=== PATIENT | male | born 1980 | race Caucasian/White ===

== ENCOUNTER 2020-06-26 21:41 | Emergency (ER) | payer BC, SELFPAY ==
--- NOTE | ~2020-06-26 | XR_ITS ---
EXAMINATION: RIGHT FOOT AND ANKLE 6 VIEWS CLINICAL INFORMATION: Pain and swelling. COMPARISON: None. TECHNIQUE: AP, lateral, oblique views of the right foot were obtained in addition to AP, lateral and oblique views of the right ankle. FINDINGS: There is soft tissue swelling overlying the lateral malleolus. There is a trace ankle joint effusion. There is a nondisplaced fracture through the posterior calcaneus best demonstrated on the lateral view. No additional fractures are identified. XR/XR foot RT 2V IMPRESSION: Nondisplaced posterior calcaneal fracture. Mild soft tissue swelling.
--- NOTE | ~2020-06-26 | CT_ITS ---
EXAMINATION: CT FOOT WITHOUT CONTRAST, RIGHT CLINICAL INFORMATION: Calcaneal fracture. COMPARISON: 06/26/2020. TECHNIQUE: Contiguous helical images of the right foot were obtained without IV contrast. Multiplanar reconstructions were performed. This CT examination was performed using dose optimization techniques as appropriate, variously including the following: *Automated exposure control *Adjustment of mA and/or kV according to patient size (this includes techniques or standardized protocols for targeted exams where dose is matched to indication/reason for exam; i.e. extremities or head) *Use of iterative reconstruction technique DLP: 231 there is associated soft tissue swelling. mGy-cm FINDINGS: Several different fracture lines are present throughout the calcaneus. In addition to the posterior vertical fracture line identified on plain film, there are additional fracture lines extending anteriorly to the calcaneal medial cuneiform joint. CT/CT foot RT wo con IMPRESSION: Calcaneal fracture with multiple fracture lines. No significant displacement.
--- NOTE | ~2020-06-26 | XR_ITS ---
EXAMINATION: RIGHT FOOT AND ANKLE 6 VIEWS CLINICAL INFORMATION: Pain and swelling. COMPARISON: None. TECHNIQUE: AP, lateral, oblique views of the right foot were obtained in addition to AP, lateral and oblique views of the right ankle. FINDINGS: There is soft tissue swelling overlying the lateral malleolus. There is a trace ankle joint effusion. There is a nondisplaced fracture through the posterior calcaneus best demonstrated on the lateral view. No additional fractures are identified. XR/XR ankle RT 2V IMPRESSION: Nondisplaced posterior calcaneal fracture. Mild soft tissue swelling.
[2020-06-26 22:01] VITALS: BP 168/99; PULSE 114; RESP 18; TEMP 37.8; O2SAT 100; BMI 29.0
--- NOTE | 2020-06-26 23:33 | ED_ITS ---
HPI - Extremity Injury (Lower) General Chief Complaint: Extremity Injury, Lower Stated Complaint: Fall Time Seen by Provider: 06/26/20 23:31 Source: patient Mode of arrival: other (Crutches) Limitations: no limitations History of Present Illness HPI Narrative: 39-year-old male with no significant past medical history presents with right foot pain. Stated that he jumped over a fence, landed on his heel and felt 10/10 pain. He is unable to bear weight. He is utilizing his son's crutches to help him ambulate at this time. Does not describe any knee or hip pain. Did not report hitting his head or losing consciousness. Denies chest pain or pressure, palpitations, shortness breath, abdominal pain, abdominal distention, dysuria, hematuria, any other concerning symptoms. MD complaint: foot injury Onset (ago): hour(s) (Within the hour of arrival) Place: street/outdoors Severity: severe Severity scale (1-10): 8 Relieving factors: immobilization and rest Exacerbating factors: weight bearing, movement and palpation Context: fall and direct blow Associated symptoms: snap/pop sensation and unable to bear weight Other symptoms: none Related Data Allergies Allergy/AdvReac Type Severity Reaction Status Date / Time amoxicillin [From Augmentin] Allergy Unknown Verified 06/26/20 22:05 clavulanic acid Allergy Unknown Verified 06/26/20 22:05 [From Augmentin] Review of Systems Review of Systems: Constitutional: No Fever, No Chills ENT/Mouth: No Ear Pain, No Hoarseness, No sore throat Eyes: No Eye Pain, No Swelling, No Redness, No Foreign Body Cardiovascular: No Chest Pain, No SOB Respiratory: No Cough, No Dyspnea Gastrointestinal: No Nausea, No Vomiting, No Diarrhea, No abdominal Pain Genitourinary: No Dysuria, No Hematuria Musculoskeletal: positive right foot pain, No Myalgias, No Joint Swelling Skin: No Skin lacerations, No rash Neuro: No Weakness, No Numbness, No Paresthesias, No Loss of Consciousness, No Dizziness, No Headache Psych: No Anxiety/Panic, No Depression Heme/Lymph: no easy bruising, no Lymphadenopathy Endocrine: No Polyuria, No Polydipsia Yes all other systems are reviewed and are negative [facility] Past Medical History Attestation statement: The following information was validated with the patient. Source: old records reviewed Medical History No active medical problems Social History Social History Smoking Status: Current every day smoker Use of substances other than those prescribed or required for medical reasons: No Advance Directives: No Advance Directives Information Provided: No Physical Exam Vital Signs: Vital Signs: Last Vital Signs Temp 98.3 F 06/27/20 01:40 Pulse 87 06/27/20 01:40 Resp 16 06/27/20 01:40 BP 162/108 H 06/27/20 01:40 Pulse Ox 97 06/27/20 01:40 Body Mass Index 29.0 Appearance: Alert. Oriented X3. No acute distress. Eyes: Pupils equal, round and reactive to light. ENT: Pharynx normal. Neck: Normal inspection. Neck supple. CVS: Normal heart rate and rhythm. Pulses normal. Respiratory: No respiratory distress. Breath sounds normal. Abdomen: Soft and nontender. Skin: Skin warm and dry. Normal skin color. Normal skin turgor. Extremities: Decreased flexion and extension to right lower extremity, significant tenderness to palpation to medial and lateral malleolar process, significant tenderness to right heel. Full range of motion to knee hip, no other apparent injuries. Neuro: No motor deficit. No sensory deficit. Course Course Course Narrative: 39-year-old male presents with right foot injury after jumping over a fence. Highly suspicious physical exam for calcaneal or malleolar fracture. Will order x-rays of ankle and foot. Positive calcaneal fracture on x-ray, discussion with orthopedic PA marketing communications manager via [place] text, requests CT scan of the foot. Will follow-up in the office on Monday. Patient was offered oxycodone as pain management, he politely declined, prefers to use Motrin and Tylenol. Will give crutch instructions, and walking boot. Detailed description of nonweightbearing, patient and patient's family member verbalized understanding of and agrees to plan of care discharge home. MDM - Extremity Injury (Lower) Differential Diagnosis Differential diagnosis: Likely ankle sprain and strain and ankle fracture Medical Records Attestation: I reviewed the patient's medical records. Lab Data Attestation: I reviewed the patient's lab results. Imaging Data Foot x-ray: Attestation: I personally reviewed and interpreted this imaging study as follows: Radiologist's impression: EXAMINATION: RIGHT FOOT AND ANKLE 6 VIEWS CLINICAL INFORMATION: Pain and swelling. COMPARISON: None. TECHNIQUE: AP, lateral, oblique views of the right foot were obtained in addition to AP, lateral and oblique views of the right ankle. FINDINGS: There is soft tissue swelling overlying the lateral malleolus. There is a trace ankle joint effusion. There is a nondisplaced fracture through the posterior calcaneus best demonstrated on the lateral view. No additional fractures are identified. XR/XR foot RT 2V IMPRESSION: Nondisplaced posterior calcaneal fracture. Mild soft tissue swelling. CT scan of foot: Attestation: I personally reviewed and interpreted this imaging study as follows: Radiologist's impression: EXAMINATION: CT FOOT WITHOUT CONTRAST, RIGHT CLINICAL INFORMATION: Calcaneal fracture. COMPARISON: 06/26/2020. TECHNIQUE: Contiguous helical images of the right foot were obtained without IV contrast. Multiplanar reconstructions were performed. This CT examination was performed using dose optimization techniques as appropriate, variously including the following: *Automated exposure control *Adjustment of mA and/or kV according to patient size (this includes techniques or standardized protocols for targeted exams where dose is matched to indication/reason for exam; i.e. extremities or head) *Use of iterative reconstruction technique DLP: 231 there is associated soft tissue swelling. mGy-cm FINDINGS: Several different fracture lines are present throughout the calcaneus. In addition to the posterior vertical fracture line identified on plain film, there are additional fracture lines extending anteriorly to the calcaneal medial cuneiform joint. CT/CT foot RT wo con IMPRESSION: Calcaneal fracture with multiple fracture lines. No significant displacement. Discharge Plan Discharge Clinical Impression: Calcaneal fracture Qualifiers: Encounter type: initial encounter Fracture type: closed Fracture alignment: nondisplaced Laterality: right Patient Disposition: Home, Self-Care Instructions: Calcaneal Fracture (ED), R.I.C.E. Treatment (ED), Non Weight Bearing Activity (ED) Additional Instructions: You were evaluated for right foot pain. X-rays and CT scan indicates right calcaneal fracture. Please wear your boot at all times. Maintain significant elevation to help reduce swelling. You must not bear any weight on this foot. That means do not stepped down on your right foot for any reason at all. Use crutches at all times when ambulating. Please alternate Tylenol 650 mg every 6 hours and Motrin 650 mg every 6 hours as needed for pain management. Write down what time you take these medications please note overdose. Please follow-up with orthopedics. Cristian LIRA is expecting your call on Monday. Thank you for choosing this emergency department for evaluation. Please follow-up with primary care physician as needed. Return to the emergency department for any new, concerning, or worsening symptoms. Referrals: Cristian Hernández PA-C [Physician [employer]] - 2 days (Right calcaneal fracture) Interventions: ED Discharge Assessment Last Done: 06/27/20 02:16 Discharge Date/Time: 06/27/20 02:18
[2020-06-27] MEDS: Ibuprofen 600 MG TABLET PO
[2020-06-27 00:18] VITALS: BP 159/105; PULSE 92; RESP 15; O2SAT 98
[2020-06-27 01:40] VITALS: BP 162/108; PULSE 87; RESP 16; TEMP 36.8; O2SAT 97
== END 2020-06-27 02:18 | disposition home or self-care (01) ==
PROVIDERS: Emergency Provider Internal Medicine
DX: S92.001A Unspecified fracture of right calcaneus, initial encounter for closed fracture (principal); M25.571 Pain in right ankle and joints of right foot; Y33.XXXA Other specified events, undetermined intent, initial encounter; Y93.9 Activity, unspecified; Y92.9 Unspecified place or not applicable; Y99.9 Unspecified external cause status; F17.200 Nicotine dependence, unspecified, uncomplicated; Z71.6 Tobacco abuse counseling
CPT/HCPCS: 73600; 73620; 73700; 99285

== ENCOUNTER → 2020-07-03 09:36 | Outpatient (BNVA) | payer BC, SELFPAY | PROVIDERS: Visit Provider Physician Assistant | DX: S92.001A Unspecified fracture of right calcaneus, initial encounter for closed fracture (principal) | CPT/HCPCS: 28400 ==

== ENCOUNTER 2020-08-05 08:11 | Outpatient (REF) | payer BC, SELFPAY ==
--- NOTE | ~2020-08-05 | XR_ITS ---
EXAMINATION: XR FOOT, RIGHT CLINICAL INFORMATION: Fracture COMPARISON: Previous x-ray and CT of the right foot June 2020 TECHNIQUE: AP, lateral, and oblique views of the right foot. FINDINGS: The bones are osteopenic. Calcaneal fracture is not appreciated. The joint spaces are normal. Soft tissues are normal. XR/XR foot RT min 3V IMPRESSION: Osteopenia. Calcaneal fracture not appreciated.
== END 2020-08-05 08:12 | disposition home or self-care (01) ==
LOC: HO.HOSX 08:11
PROVIDERS: Visit Provider Physician Assistant
DX: S92.001A Unspecified fracture of right calcaneus, initial encounter for closed fracture (principal); S92.351A Displaced fracture of fifth metatarsal bone, right foot, initial encounter for closed fracture
CPT/HCPCS: 73630

== ENCOUNTER 2020-09-02 09:03 | Outpatient (REF) | payer BC, SELFPAY ==
--- NOTE | ~2020-09-02 | XR_ITS ---
EXAMINATION: XR FOOT, RIGHT CLINICAL INFORMATION: Displaced fracture fifth metatarsal bone COMPARISON: Right foot 08/05/2020. CT 06/27/2020 TECHNIQUE: AP, lateral, and oblique views of the right foot. FINDINGS: There is diffuse osteopenia. No visible acute fracture, dislocation or subluxation seen on this exam. CT visualized fracture lines are likely healed and not seen. The ankle mortise and subtalar joints are normal. The soft tissues are normal. XR/XR foot RT min 3V IMPRESSION: Diffuse osteopenia.. Recently seen calcaneal fracture appears healed. The fracture lines are not visualized.
== END 2020-09-02 09:04 | disposition home or self-care (01) ==
LOC: HO.XRAY 09:03
PROVIDERS: Visit Provider Physician Assistant
DX: S92.351D Displaced fracture of fifth metatarsal bone, right foot, subsequent encounter for fracture with routine healing (principal)
CPT/HCPCS: 73630

== ENCOUNTER 2020-10-14 06:12 | Outpatient (REF) | payer BC, SELFPAY ==
--- NOTE | ~2020-10-14 | XR_ITS ---
EXAMINATION: XR FOOT, RIGHT CLINICAL INFORMATION: Displaced fracture fifth metatarsal COMPARISON: September 02, 2020 and studies dating back to June 26, 2020 TECHNIQUE: AP, lateral, and oblique views of the right foot. FINDINGS: There is osteopenia visualized bones. No fracture of the fifth metatarsal is identified. Joint spaces are maintained. There appears be healing of calcaneal fractures with fracture lines no longer being evident and with regions of increased sclerosis. Small plantar calcaneal spur seen. XR/XR foot RT min 3V IMPRESSION: Appearance of bony union of previously noted right calcaneal fractures.
== END 2020-10-14 06:13 | disposition home or self-care (01) ==
LOC: HO.HOSX 06:12
PROVIDERS: Visit Provider Physician Assistant
DX: S92.351A Displaced fracture of fifth metatarsal bone, right foot, initial encounter for closed fracture (principal)
CPT/HCPCS: 73630

== ENCOUNTER 2024-08-21 08:09 | Outpatient (AMB) | payer OTHER, SELFPAY ==
--- NOTE | 2024-08-21 08:12 | A.OFFPC_ITS ---
Vital Signs 08/21/24 08:13 08/21/24 08:41 Height 6 ft 1 in Weight 208 lb BMI 27.4 BP 147/81 H 160/120 H Blood Pressure Location Lt brachial Lt brachial Position Sitting Sitting Respiration 20 Pulse 112 H 83 Pulse Source Pulse Oximeter Pulse Oximeter Temp 97.7 F Temp Source Temporal Artery Scan Pulse Oximetry (%) 97 Oxygen Delivery Method Room Air Intake Visit Reasons: establish care Final Application Reviewer: Present Accompanied by: Self / Same As Patient Allergies amoxicillin [From Augmentin] Allergy (Verified 08/21/24 08:28) Unknown clavulanic acid [From Augmentin] Allergy (Verified 08/21/24 08:28) Unknown Medication List - Last Reconciled 08/21/24 by Yessi Sol PA-C omeprazole 40 mg PO DAILY Dental Screening Dental Screen Date: 07/11/24 Did you have a dental visit in the last 12 months?: Yes Did you have a dental problem in the last 6 months where you did not have access to dental care?: No HPI establish care HPI Details 43-year-old male coming to the office wi th the 1st time. Chronic management of gastroesophageal reflux disease (GERD) with omeprazole 20 mg every other day is effective, with symptoms reappearing when doses are missed. Limited dietary modifications have been discussed. Nicotine dependence is ongoing, with one pack per day despite prior cessation attempts including Bupropion, which was poorly tolerated. Cessation remains a future consideration without committed intervention steps at this time. Current essential hypertension is indicated by blood pressure values showing a concerning elevat ion, manifesting consistently since a biometrics screening earlier this year. Lifestyle factors, including active smoking, may contribute to vascular health risks, though immediate symptomatic manifestations like chest pain or dyspnea are denied. 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 1. Little interest or pleasure in doing things: not at all 2. Feeling down, depressed, or hopeless: not at all 3. Trouble falling or staying asleep, or sleeping too much: not at all 4. Feeling tired or having little energy: not at all 5. Poor appetite or overeating: not at all 6. Feeling bad about yourself - or that you are a failure or have let yourself or your family down: not at all 7. Trouble concentrating on things, such as reading the newspaper or watching television: not at all 8. Moving or speaking so slowly that other people could have noticed. Or the opposite - being so fidgety or restless that you have been moving around a lot more than usual: not at all 9. Thoughts that you would be better off or of hurting yourself in some way: not at all Total score: 0 Depression Screening Interpretation: Negative Depression Screening Done: Yes 67766 - PHQ-9 Billing: Yes Source: Developed by Drs. Yaw Dupree, Nasrin Anderson, Jagdeep Magdaleno and colleagues, with an educational nasra from [employer]. AUDIT C Alcohol Use Questionnaire (AUDIT-C) 1. How often do you have a drink containing alcohol?: 4 or more times a week 2. How many drinks containing alcohol do you have on a typical day when you are drinking?: 3 or 4 3. How often do you have six or more drinks on one occasion?: Less than monthly Total Score: 6 Score Reviewed/Action Taken: Yes SOURAV-7 AMB Questionnaire SOURAV-7 Feeling nervous, anxious, or on edge: 0 = Not at all Not being able to stop or control worryin = Not at all Worrying too much about different things: 0 = Not at all Trouble relaxin = Not at all Being so restless that it is hard to sit still: 0 = Not at all Becoming easily annoyed or irritable: 2 = More than half the days Feeling afraid as if something awful might happen: 0 = Not at all Total SOURAV-7 score (0-4 normal; 5-9 mild; 10-14 moderate; 15-21 severe): 2 Source: Developed by Drs. Yaw Dupree, Nasrin Anderson, Jagdeep Magdaleno and colleagues, with an educational nasra from [employer]. SOURAV-7 Assessment Billing SOURAV-7 Assessment Tool: SOURAV-7 Assessment 44709 Review of Systems Const Denies body aches, Denies chills, Denies fever(s), Denies headache(s) and Denies poor appetite Eyes Reports no additional complaints ENT Denies dysphagia, Denies dizziness, Denies headache(s) and Denies odynophagia Card Denies chest pain, Denies syncope, Denies edema, Denies irregular heart rhythm, Denies lightheadedness and Denies dyspnea Resp Denies cough and Denies dyspnea GI Denies abdominal pain, Denies constipation, Denies dysphagia, Denies diarrhea, Denies nausea, Denies odynophagia and Denies vomiting Reports no additional complaints Musc Reports no additional complaints and Denies abnormal gait Skin/Breast Reports system reviewed and no additional complaints, except as documented Neuro Denies abnormal gait, Denies dizziness, Denies syncope and Denies headache(s) Psych Reports no additional complaints Physical exam (Primary Care) Vital Signs: Last Vital Signs Temp 97.7 F 08/21/24 08:13 Pulse 83 08/21/24 08:41 Resp 20 08/21/24 08:13 BP 147/81 H 08/21/24 08:13 Pulse Ox 97 08/21/24 08:13 Oxygen Delivery Method Room Air 08/21/24 08:13 BMI result Body Mass Index 27.4 Tobacco/Smoking Status: Tobacco use Status Patient Tobacco Use Status Current everyday Tobacco 08/21/24 08:20 Are you ready to quit: No Tobacco cessation counseling provided: Yes Items discussed: Nicotine replacement and Other Relapse Prevention: discussed dietary, exercise and/or lifestyle changes Number of minutes spent counselin CPT code: 04871 - 4-10 Minutes PHQ-9: PHQ-9 Score PHQ-9: Total score 0 08/21/24 08:33 Depression Screening Interpretation: Negative Const General: cooperative, healthy appearing, comfortable and no acute distress Orientation/consciousness: patient oriented x3 HENMT Head: Yes normocephalic Ears: hearing grossly normal bilaterally General nose exam: Normal external nose present Eyes General: appearance normal, both eyes and all related structures Conjunctivae: conjunctivae normal Neck Neck: Yes full ROM and Yes no lymphadenopathy Resp Effort & Inspection: normal respiratory effort Auscultation: clear to auscultation bilaterally, no crackles, no rales, no rhonchi and no wheezes Cardio Rate: regular rate Rhythm: regular rhythm Skin General skin exam: no rashes or lesions noted Neuro General: patient oriented x3 Gait exam (Neuro): Normal gait present Extrem General: Yes normal to inspection, Yes full ROM and No edema Psych Affect: normal affect Attitude: cooperative Insight: Good insight present (Psych) Judgement: Good judgement present (Psych) Coding Level of Care Code New Pt Level 4 (36856) Diagnoses Hypertension I10 GERD (gastroesophageal reflux disease) K21.9 Tobacco use disorder F17.200 Screening for diabetes mellitus Z13.1 Screening for hypercholesterolemia Z13.220 Screening for prostate cancer Z12.5 Additional Codes SOURAV-7 Assessment Billing - SOURAV-7 Assessment Tool: SOURAV-7 Assessment 39928 ([id number]) PHQ-9 - 58895 - PHQ-9 Billing: Yes ([id number]) Vital Signs *Quality* - CPT code: 07516 - 4-10 Minutes ([id number]) Assessment & Plan Assessment & Plan (1) Hypertension: Code(s): I10 - Essential (primary) hypertension Category: Medical Plan: Patient having elevated blood pressure in April when doing biometrics and has elevated blood pressure 160/120 today. I discussed with the patient these elevated blood pressures are dangerously high and would recommend starting on medication at this time. He does agree and plan to start on losartan 25 mg. Patient agrees to take his blood pressure at home with blood pressure cuff that he will obtain and follow up in the office in 4 weeks. I reviewed with him red flag symptoms and when to present for re-evaluation, currently asymptomatic at this time. I also reviewed with the patient if his blood pressure at home is consistently over 140/90 to reach out to the office. (2) GERD (gastroesophageal reflux disease): Code(s): K21.9 - Gastro-esophageal reflux disease without esophagitis Category: Medical Plan: Avoid trigger foods such as citrus, tomato products, soda, caffeine, spicy foods and other foods that may be irritating to your stomach. Avoid laying flat 3-4 hours after eating and elevate the head of the bed 30 degrees to prevent acid from moving into the esophagus. Continue on omeprazole 40. (3) Tobacco use disorder: Code(s): F17.200 - Nicotine dependence, unspecified, uncomplicated Category: Medical Plan: Smoking cigarettes and the use of tobacco can be harmful. We discussed the importance of stopping and options to aid in smoking cessation. Declining nicotine replacement therapy, Chantix and Wellbutrin at this time. (4) Screening for diabetes mellitus: Code(s): Z13.1 - Encounter for screening for diabetes mellitus Category: Medical Plan: Blood work ordered for A1c. (5) Screening for hypercholesterolemia: Code(s): Z13.220 - Encounter for screening for lipoid disorders Category: Medical Plan: Blood work ordered. (6) Screening for prostate cancer: Code(s): Z12.5 - Encounter for screening for malignant neoplasm of prostate Category: Medical Plan: PSA ordered today. Plan Therapeutic intervention was implemented for essential hypertension with a 25 mg daily dose of losartan, complementing ongoing omeprazole therapy for GERD. Discussions on cardiovascular risks associated with smoking and hypertension were thorough, emphasizing lifestyle improvements like exercise and diet modifications while offering Nicotine Replacement Therapy (NRT) as needed. A systematic follow-up strategy involves repeating blood pressure evaluations and necessary lab work to substantiate current conditions and medication efficacy. Fasting labs including lipid and glucose screening have been scheduled for a comprehensive understanding of the patient's metabolic state. The reinforced plan reflects a blend of pharmaceutical approach, lifestyle adjustment encouragement, and monitoring arrangement, particularly considering family histories of hypertension and cancer. This note was constructed using voice recognition software. While every effort has been made to ensure accuracy and cosmetics machine operator, still areas may have been included sometimes these areas may affect the content or meeting of the given symptoms. Total time spent caring for the patient today was 30 minutes. This includes time spent before the visit reviewing the chart, time spent during the visit, and time spent after the visit and documentation. Patient was informed and verbally consented to the use of an ambient scribe for clinic note documentation during this visit. Orders: Orders Comprehensive Met. Panel Today K21.9 - Gastro-esophageal reflux disease without esophagitis, Z00.00 - Encounter for general adult medical examination without abnormal findings Complete Blood Count Auto Diff Today K21.9 - Gastro-esophageal reflux disease without esophagitis, Z00.00 - Encounter for general adult medical examination without abnormal findings Vitamin D 25-OH Total Today K21.9 - Gastro-esophageal reflux disease without esophagitis, Z00.00 - Encounter for general adult medical examination without abnormal findings Hemoglobin A1c Today Z13.1 - Encounter for screening for diabetes mellitus, Z13.220 - Encounter for screening for lipoid disorders PSA, Ultra Sensitive Today Z12.5 - Encounter for screening for malignant neoplasm of prostate Free T4 (Free Thyroxine) Today K21.9 - Gastro-esophageal reflux disease without esophagitis, Z00.00 - Encounter for general adult medical examination without abnormal findings TSH reflex Free T4 Today K21.9 - Gastro-esophageal reflux disease without esophagitis, Z00.00 - Encounter for general adult medical examination without abnormal findings Vitamin B12 and Folate Today K21.9 - Gastro-esophageal reflux disease without esophagitis, Z13.21 - Encounter for screening for nutritional disorder Lipid Panel Today Z13.220 - Encounter for screening for lipoid disorders Medications: New omeprazole 20 mg PO DAILY 90 caps 1RF losartan 25 mg PO DAILY 30 tabs 1RF
[2024-08-21 08:13] VITALS: BP 147/81; PULSE 112; RESP 20; TEMP 36.5; O2SAT 97; BMI 27.4
[2024-08-21 08:41] VITALS: BP 160/120; PULSE 83
== END 2024-08-21 08:59 | disposition home or self-care (01) ==
DX: I10 Essential (primary) hypertension (principal); K21.9 Gastro-esophageal reflux disease without esophagitis; F17.200 Nicotine dependence, unspecified, uncomplicated; Z13.1 Encounter for screening for diabetes mellitus; Z13.220 Encounter for screening for lipoid disorders; Z12.5 Encounter for screening for malignant neoplasm of prostate

== ENCOUNTER → 2024-08-21 08:09 | Outpatient (BNVA) | payer OTHER, SELFPAY | DX: K21.9 Gastro-esophageal reflux disease without esophagitis (principal); I10 Essential (primary) hypertension; F17.200 Nicotine dependence, unspecified, uncomplicated | CPT/HCPCS: 96127 ==

== ENCOUNTER 2024-08-22 07:49 | Outpatient (REF) | payer OTHER, SELFPAY ==
[2024-08-22 08:01] LABS: MANUAL DIFF FLAG NO
[2024-08-22 08:17] LABS: Basophils Absolute Auto 0.1 X10*3/uL (0.0-0.2); Basophils Percent Auto 1.2 % (0-2); Eosinophils Absolute Auto 0.1 X10*3/uL (0.0-0.4); Eosinophils Percent Auto 1.8 % (0-4); Hemoglobin 15.4 g/dl (14.0-18.0); Imm Gran Abs Auto 0.06 X10*3/uL (0.00-0.03); Imm Gran Pct Auto 1.2 % (0.0-0.4); Lymphocytes Absolute Auto 1.3 X10*3/uL (1.2-4.9); Lymphocytes Percent Auto 25.5 % (20-40); Mean Corpuscular HGB Conc 36.7 g/dl (31.0-36.0); Mean Corpuscular Hemoglobin 38.7 pg (27.0-33.0); Mean Corpuscular Volume 105.5 fL (80.0-98.0); Monocytes Absolute Auto 0.4 X10*3/uL (0.1-1.2); Monocytes Percent Auto 8.8 % (2-11); Neutrophils Percent Auto 61.5 % (45-73); Platelet Count 198 X10*3/uL (160-400); Red Blood Count 3.98 X10*6/uL (4.60-5.80); Red Cell Distribution Width 12.9 % (11.0-16.0); White Blood Count 4.9 X10*3/uL (4.8-10.8)
[2024-08-22 08:23] LABS: Estimated Average Glucose 91 mg/dL; Hemoglobin A1c % 4.8 % (<6.0)
[2024-08-22 08:56] LABS: Albumin Level 4.7 g/dL (3.5-5.0); Alkaline Phosphatase 162 U/L (39-117); Anion Gap 15 (12-20); Aspartate Amino Transferase 96 U/L (5-37); Bilirubin Total 0.7 mg/dL (0.0-1.0); Blood Urea Nitrogen 9 mg/dL (9-16); Calcium 9.6 mg/dL (8.4-10.2); Carbon Dioxide 25 mmol/L (22-29); Chloride 108 mmol/L (96-108); Cholesterol 191 mg/dL (<200); Estimated Glomerular Filt Rate > 60; Glucose Random 103 mg/dL (60-115); HDL Cholesterol 38 mg/dL (>40); LDL Cholesterol Calculated 79 mg/dL (<100); Potassium 3.7 mmol/L (3.3-5.1); Sodium 144 mmol/L (135-145); Total Protein 7.4 g/dL (6.5-8.0); Triglycerides 374 mg/dL (<150)
[2024-08-22 09:05] LABS: Alanine Aminotransferase 56 U/L (0-40)
[2024-08-22 09:10] LABS: Free T4 (Free Thyroxine) 1.06 ng/dL (0.71-1.85); TSH reflex Free T4 2.14 uIU/mL (0.32-4.0); Vitamin D 25-OH Total 14.2 ng/mL (>30)
[2024-08-22 09:21] LABS: Folate 5.5 ng/mL (> or = 4.0); Vitamin B12 260 pg/mL (200-900)
[2024-08-29 12:58] LABS: PSA, Ultra Sensitive 0.63 ng/mL
== END 2024-08-22 07:50 | disposition home or self-care (01) ==
LOC: HO.LAB 07:49
DX: Z00.00 Encounter for general adult medical examination without abnormal findings (principal); K21.9 Gastro-esophageal reflux disease without esophagitis; Z13.21 Encounter for screening for nutritional disorder; Z13.1 Encounter for screening for diabetes mellitus; Z13.220 Encounter for screening for lipoid disorders; Z12.5 Encounter for screening for malignant neoplasm of prostate
CPT/HCPCS: 36415; 80053; 80061; 82306; 82607; 82746; 83036; 84153; 84439; 84443; 85025

== ENCOUNTER 2024-09-09 07:57 | Outpatient (REF) | payer OTHER, SELFPAY ==
[2024-09-09 09:31] LABS: Alanine Aminotransferase 43 U/L (0-40); Albumin Level 4.8 g/dL (3.5-5.0); Alkaline Phosphatase 113 U/L (39-117); Aspartate Amino Transferase 38 U/L (5-37); Bilirubin Direct 0.2 mg/dL (0.0-0.5); Bilirubin Total 0.8 mg/dL (0.0-1.0); Iron 98 mcg/dL (45-160); Percent Iron Saturation 33 % (15-50); Total Iron Binding Capacity 301 mcg/dL (228-428); Total Protein 7.8 g/dL (6.5-8.0); Unsaturated Iron Binding 203 ug/dL
[2024-09-09 09:43] LABS: HBS Num1 0.49 mIU/mL (0-7.99); HBc Num1 0.26 S/CO (0.00-0.79); HBsAGNum1 0.43 S/CO (0.00-0.99); Hepatitis B Core Antibody Nonreactive (Nonreactive); Hepatitis B Surface Antigen Negative (Negative); ~HepC Num1 0.18 S/CO (0.00-0.79); ~Hepatitis B Surface Antibody NONREACTIVE (Nonreactive); ~Hepatitis C Antibody Nonreactive (Nonreactive)
[2024-09-09 09:52] LABS: Ferritin 416 ng/mL (20-250)
== END 2024-09-09 07:58 | disposition home or self-care (01) ==
LOC: HO.LAB 07:57
DX: R79.89 Other specified abnormal findings of blood chemistry (principal)
CPT/HCPCS: 36415; 80076; 82728; 83540; 86704; 86706; 86803; 87340

== ENCOUNTER 2024-09-17 13:42 | Outpatient (AMB) | payer OTHER, SELFPAY ==
[2024-09-17 13:50] VITALS: BP 128/90; PULSE 89; TEMP 36.3; O2SAT 98; BMI 27.1
--- NOTE | 2024-09-17 13:50 | A.OFFPC_ITS ---
Vital Signs 09/17/24 13:50 Height 6 ft 1 in Weight 205 lb 6 oz BMI 27.1 BP 128/90 H Blood Pressure Location Lt brachial Position Sitting Pulse 89 Pulse Source Pulse Oximeter Temp 97.3 F Temp Source Temporal Artery Scan Pulse Oximetry (%) 98 Oxygen Delivery Method Room Air Intake Visit Reasons: f/u HTN First Officer: Present Accompanied by: Self / Same As Patient Allergies amoxicillin (From Augmentin) Allergy (Verified 09/17/24 14:25) Unknown clavulanic acid (From Augmentin) Allergy (Verified 09/17/24 14:25) Unknown Medication List - Last Reconciled 09/17/24 by Yessi Sol PA-C losartan 25 mg PO DAILY omeprazole 20 mg PO DAILY Tobacco use date assessed: 09/17/24 Dental Screening Dental Screen Date: 07/11/24 Did you have a dental visit in the last 12 months?: Yes Did you have a dental problem in the last 6 months where you did not have access to dental care?: No Was dental information given to patient?: Patient has dentist HPI f/u HTN HPI Details 43 year old male with past medical histo ry of hypertension, GERD, tobacco use disorder and GERD last seen 08/2024 coming in for follow up. Presenting with a follow-up on hypertension management and evaluation of recent laboratory results. The patient has been managing hypertension with losartan, reporting improved blood pressure readings at home, although occasional high readings persist. Initial liver function tests were high but have shown improvement, though they remain elevated. Ferritin levels were noted to be high despite normal iron levels, prompting further investigation with an abdominal ultrasound scheduled. 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 1. Little interest or pleasure in doing things: not at all 2. Feeling down, depressed, or hopeless: not at all 3. Trouble falling or staying asleep, or sleeping too much: not at all 4. Feeling tired or having little energy: not at all 5. Poor appetite or overeating: not at all 6. Feeling bad about yourself - or that you are a failure or have let yourself or your family down: not at all 7. Trouble concentrating on things, such as reading the newspaper or watching television: not at all 8. Moving or speaking so slowly that other people could have noticed. Or the opposite - being so fidgety or restless that you have been moving around a lot more than usual: not at all 9. Thoughts that you would be better off or of hurting yourself in some way: not at all Total score: 0 Depression Screening Interpretation: Negative Depression Screening Done: Yes Source: Developed by Drs. Yaw Dupree, Nasrin Anderson, Jagdeep Magdaleno and colleagues, with an educational nasra from [employer]. Thrive Questionnaire Date Thrive assessed: 08/21/24 I am a: Patient What is your living situation today?: I have a steady place to live Within the past 12 months, did the food you bought not last and you didn't have the money to get more?: Never true Within the past 12 months, did you worry whether your food would run out before you got money to buy more?: Never true Do you have trouble paying for medicines?: No Do you have trouble getting transportation to medical appointments?: No Do you have trouble paying your heating and electricity bill?: No Do you have trouble taking care of your child, family member or friend?: No Do you have trouble with day-to-day activities such as bathing, preparing meals, shopping, managing finances, etc.?: No Are you currently unemployed and looking for a job?: No Are you interested in more education?: No Please select the resources that you would like help with: None Currently or been in a relationship where the following occur: No concerns reported THRIVE Score: 0 AUDIT C Alcohol Use Questionnaire (AUDIT-C) 1. How often do you have a drink containing alcohol?: Never 3. How often do you have six or more drinks on one occasion?: Never Total Score: 0 SOURAV-7 AMB Questionnaire SOURAV-7 Date SOURAV - 7 assessed: 08/21/24 Feeling nervous, anxious, or on edge: 0 = Not at all Not being able to stop or control worryin = Not at all Worrying too much about different things: 0 = Not at all Trouble relaxin = Not at all Being so restless that it is hard to sit still: 0 = Not at all Becoming easily annoyed or irritable: 0 = Not at all Feeling afraid as if something awful might happen: 0 = Not at all Total SOURAV-7 score (0-4 normal; 5-9 mild; 10-14 moderate; 15-21 severe): 0 Source: Developed by Drs. Yaw Dupree, Nasrin Anderson, Jagdeep Magdaleno and colleagues, with an educational nasra from [employer]. Review of Systems Const Denies body aches, Denies chills, Denies fever(s), Denies headache(s) and Denies poor appetite Eyes Reports no additional complaints ENT Denies dysphagia, Denies dizziness, Denies headache(s) and Denies odynophagia Card Denies chest pain, Denies syncope, Denies edema, Denies irregular heart rhythm, Denies lightheadedness and Denies dyspnea Resp Denies cough and Denies dyspnea GI Denies abdominal pain, Denies constipation, Denies dysphagia, Denies diarrhea, Denies nausea, Denies odynophagia and Denies vomiting Reports no additional complaints Musc Reports no additional complaints and Denies abnormal gait Skin/Breast Reports system reviewed and no additional complaints, except as documented Neuro Denies abnormal gait, Denies dizziness, Denies syncope and Denies headache(s) Psych Reports no additional complaints Physical exam (Primary Care) Vital Signs: Last Vital Signs Temp 97.3 F 09/17/24 13:50 Pulse 89 09/17/24 13:50 BP 128/90 H 09/17/24 13:50 Pulse Ox 98 09/17/24 13:50 Oxygen Delivery Method Room Air 09/17/24 13:50 BMI result Body Mass Index 27.1 Tobacco/Smoking Status: Tobacco use Status Tobacco use date assessed 09/17/24 09/17/24 13:52 Patient Tobacco Use Status Current everyday Tobacco 09/17/24 13:52 e-Cigarette/Vaping Use Never Used 09/17/24 14:07 PHQ-9: PHQ-9 Score PHQ-9: Total score 0 09/17/24 14:07 Depression Screening Interpretation: Negative Thrive Assessment: Date of Thrive Assessment Date Thrive assessed 08/21/24 09/17/24 13:52 Currently or been in a relationship where the following occur: No concerns reported Const General: cooperative, healthy appearing, comfortable and no acute distress Orientation/consciousness: patient oriented x3 HENMT Head: Yes normocephalic Ears: hearing grossly normal bilaterally General nose exam: Normal external nose present Eyes General: appearance normal, both eyes and all related structures Conjunctivae: conjunctivae normal Neck Neck: Yes full ROM and Yes no lymphadenopathy Resp Effort & Inspection: normal respiratory effort Auscultation: clear to auscultation bilaterally, no crackles, no rales, no r honchi and no wheezes Cardio Rate: regular rate Rhythm: regular rhythm Skin General skin exam: no rashes or lesions noted Neuro General: patient oriented x3 Gait exam (Neuro): Normal gait present Extrem General: Yes normal to inspection, Yes full ROM and No edema Psych Affect: normal affect Attitude: cooperative Insight: Good insight present (Psych) Judgement: Good judgement present (Psych) Coding Level of Care Code Est Pt Level 3 (17590) Diagnoses Hypertension I10 GERD (gastroesophageal reflux disease) K21.9 Tobacco use disorder F17.200 High serum ferritin R79.89 Assessment & Plan Assessment & Plan (1) Hypertension: Code(s): I10 - Essential (primary) hypertension Category: Medical Plan: Continue on current blood pressure medication. Avoid salt intake and encourage healthy diet and regular exercise. Blood pressures at home have significantly improved since starting on losartan. The majority of the blood pressure readings are less than 140/90 with very few readings exceeding this level. Plan to continue on losartan and follow up in 2 months. Patient to continue taking blood pressures daily and reach out to the office should the exceed 140/90 (2) GERD (gastroesophageal reflux disease): Code(s): K21.9 - Gastro-esophageal reflux disease without esophagitis Category: Medical Plan: Avoid trigger foods such as citrus, tomato products, soda, caffeine, spicy foods and other foods that may be irritating to your stomach. Avoid laying flat 3-4 hours after eating and elevate the head of the bed 30 degrees to prevent acid from moving into the esophagus. Continue on Omeprazole. (3) Tobacco use disorder: Code(s): F17.200 - Nicotine dependence, unspecified, uncomplicated Category: Medical Plan: Smoking cigarettes and the use of tobacco can be harmful. We discussed the importance of stopping and options to aid in smoking cessation (4) High serum ferritin: Code(s): R79.89 - Other specified abnormal findings of blood chemistry Category: Medical Plan: Serum ferritin is high despite normal iron levels. Plan to repeat labs and obtain abdominal ultrasound. If remain elevated referral to Hematology will be placed. Plan The patient will continue taking losartan for hypertension management, with regular home monitoring of blood pressure to ensure it remains controlled. The patient is advised to maintain dietary modifications to address hyperlipidemia, particularly focusing on reducing triglyceride levels. An abdominal ultrasound is scheduled to further evaluate liver function and high ferritin levels, with plans to repeat blood tests around the time of the ultrasound. The patient is encouraged to continue taking vitamin D supplements to address the deficiency. Follow-up is planned in two months to reassess blood pressure control and review any new lab results. This note was constructed using voice recognition software. While every effort has been made to ensure accuracy and brine supervisor, still areas may have been included sometimes these areas may affect the content or meeting of the given symptoms. Total time spent caring for the patient today was 20 minutes. This includes time spent before the visit reviewing the chart, time spent during the visit, and time spent after the visit and documentation. Patient was informed and verbally consented to the use of an ambient scribe for clinic note documentation during this visit. Orders: Orders Liver Panel Today R79.89 - Other specified abnormal findings of blood chemistry Ferritin Today R79.89 - Other specified abnormal findings of blood chemistry IRON PROFILE Today R79.89 - Other specified abnormal findings of blood chemistry
== END 2024-09-17 14:39 | disposition home or self-care (01) ==
LOC: HO.HMCH 13:43
DX: I10 Essential (primary) hypertension (principal); K21.9 Gastro-esophageal reflux disease without esophagitis; F17.200 Nicotine dependence, unspecified, uncomplicated; R79.89 Other specified abnormal findings of blood chemistry

== ENCOUNTER 2024-10-03 08:41 | Emergency (ER) | payer OTHER, SELFPAY ==
--- NOTE | ~2024-10-03 | CT_ITS ---
EXAMINATION: CT ABDOMEN AND PELVIS WITH CONTRAST CLINICAL INFORMATION: Pain DLP: 518 mGY*cm COMPARISON: None available. TECHNIQUE: Multidetector volumetric images were obtained from the superior aspect of the liver through the pubic symphysis following administration 85 mL of Omnipaque 350 intravenous contrast. Sagittal and coronal reformatted images were obtained on the technologist's workstation. Oral contrast: No This CT examination was performed using dose optimization techniques as appropriate, variously including the following: *Automated exposure control *Adjustment of mA and/or kV according to patient size (this includes techniques or standardized protocols for targeted exams where dose is matched to indication/reason for exam; i.e. extremities or head) *Use of iterative reconstruction technique FINDINGS: LUNG BASES: There is air trapping in the anteromedial segment of left lower lobe, adjacent to the left heart margin. LIVER, GALLBLADDER, AND BILIARY TREE: The liver is normal in size, shape, and attenuation. No focal hepatic lesion or biliary ductal dilatation is present. The gallbladder is unremarkable with no evidence of radiopaque gallstones, gallbladder wall thickening, or obvious pericholecystic inflammatory changes. PANCREAS: Unremarkable. SPLEEN: Unremarkable. ADRENAL GLANDS: Unremarkable. KIDNEYS AND URETERS: The kidneys are normal in size, shape, and attenuation. No hydronephrosis, hydroureter, or calculi seen. No perinephric stranding. BLADDER: Unremarkable. GASTROINTESTINAL TRACT: Pseudodiverticula are present in the region of the cecum. Wall the cecum is mildly thickened. However, there are no inflammatory changes in the adjacent mesocolon.. The appendix is mostly gas-filled and thin-walled. ABDOMINAL WALL: No significant hernia is appreciated. LYMPH NODES: Normal. VASCULAR: Minimal atherosclerotic calcifications are evident. PELVIC VISCERA: Unremarkable. OSSEOUS STRUCTURES: Unremarkable. CT/CT abdomen pelvis w IV con IMPRESSION: The cecal wall appears mildly thickened. However, there are no inflammatory changes in the adjacent mesentery. Numerous pseudodiverticula are also present in the cecum. Correlate for signs symptoms of colitis. Other etiologies such as inflammatory bowel disease, neoplasm, and ischemia are unlikely. Fleischner guidelines were followed. Electronically signed by: Romaine Stephenson MD 10/03/2024 11:38 AM EDT
[2024-10-03 08:44] VITALS: BP 145/104; PULSE 108; RESP 18; TEMP 36.6; O2SAT 99; BMI 27.0
--- NOTE | 2024-10-03 09:14 | ECG_ITS ---
Test Reason : abd pain Blood Pressure : */* mmHG Vent. Rate : 84 BPM Atrial Rate : 84 BPM P-R Int : 140 ms QRS Dur : 90 ms QT Int : 362 ms P-R-T Axes : 13 6 22 degrees QTcB Int : 427 ms Normal sinus rhythm Possible Inferior infarct , age undetermined Abnormal ECG No previous ECGs available Referred By: Jcarlos Porras Electronically Signed By: Fede Littlejohn
--- NOTE | 2024-10-03 09:25 | ED_ITS ---
HPI - General Adult General Chief complaint: Abdominal Pain Stated complaint: r side pain Time Seen by Provider: 10/03/24 09:00 Source: patient, RN notes reviewed and old records reviewed Mode of arrival: ambulatory Limitations: no limitations History of Present Illness ED Provider: Vern BOWLING narrative: 43-year-old male past medical history significant for hypertension, GERD presents for evaluation of abdominal pain. The patient reports for about 1 week he has had a constant right-sided mid to upper abdominal pain. The pain is unrelated to eating, he has no appetite but denies nausea or vomiting. The pain radiates through to his back. He denies any history of similar. He has never had any abdominal surgeries His pain is improved with ibuprofen He reports that he drinks 2 glasses of whiskey daily but denies any known history of pancreatitis Denies any fevers, chills, urinary complaints His pain is currently rated as a 3/10 Related Data Previous Rx's ?Medication ?Instructions ?Recorded omeprazole 20 mg capsule,delayed 20 mg PO DAILY #90 ca ps 08/21/24 release losartan 25 mg tablet 25 mg PO DAILY #90 tabs 06/04 Allergies Allergy/AdvReac Type Severity Reaction Status Date / Time amoxicillin (From Augmentin) Allergy Unknown Verified 10/03/24 08:45 clavulanic acid (From Allergy Unknown Verified 10/03/24 08:45 Augmentin) Review of Systems 2 Constitutional: Constitutional: Denies body ache(s), Denies chills and Denies fever(s) Eyes: Eyes: Denies blurry vision Cardiovascular: Cardiovascular: Denies chest pain and Denies dyspnea on exertion Respiratory: Respiratory: Denies cough and Denies dyspnea on exertion Gastrointestinal: Gastrointestinal: Reports abdominal pain, Denies melena, Denies hematochezia, Denies nausea and Denies vomiting Genitourinary: Genitourinary: Denies dysuria and Denies flank pain Musculoskeletal: Musculoskeletal: Denies back pain Integumentary/Breasts: Skin/Breast: Denies rash Psychiatric: Psychiatric: Denies anxiety PMFSH Past Medical History Medical History Right calcaneal fracture Fracture of calcaneus with routine healing No active medical problems Family History Family History Maternal Grandfather Cancer Maternal Grandmother Liver cancer Paternal Grandfather Cancer of spine Social History Social History Housing: House Alcohol intake: current Alcohol intake frequency: 3 or more drinks per day Alcohol type: hard liquor Patient Tobacco Use Status: Current everyday Tobacco user Cigarette Packs Per Day: 1 Cigarettes Per Day: 20 Years Smoked: 26 Smoked in Last 30 Days: Yes e-Cigarette/Vaping Use: Never Used Use of substances other than those prescribed or required for medical reasons: No Advance Directives: No Advance Directives Information Provided: Yes Do you have a plan to hurt others: No Plan service: No Current occupational status: employed 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 Cognitive needs: No Hearing needs: No Vision needs: Yes Physical Exam ED Vital Signs: Vital Signs - 24 hr 10/03/24 08:44 10/03/24 10:03 10/03/24 10:17 Temperature 97.9 F 98.0 F 98.2 F Pulse Rate 108 H 95 79 Respiratory Rate 18 17 17 Blood Pressure 145/104 H 134/96 H 134/96 H Pulse Oximetry 99 98 97 Oxygen Delivery Method Room Air Room Air Room Air 10/03/24 11:54 Temperature 98.1 F Pulse Rate 78 Respiratory Rate 16 Blood Pressure 128/85 Pulse Oximetry 98 Oxygen Delivery Method Room Air BMI result Body Mass Index 27.0 Const General: healthy appearing, comfortable, no acute distress, alert and awake Nutritional Appearance: well nourished Orientation/consciousness: patient oriented x3 HENMT Head: Yes normocephalic and Yes atraumatic Eyes Eyelids: Yes eyelids normal Conjunctivae: conjunctivae normal Sclerae: sclerae normal Corneas: corneas normal Pupils: Equal, round and reactive pupils present EOM: EOMs intact bilaterally Neck Neck: Yes full ROM Resp Effort & Inspection: normal respiratory effort, able to speak in complete sentences and not labored Cardio Rate: regular rate Rhythm: regular rhythm GI Inspection: No distended Palpation (GI): Soft to palpation, not firm, nontender, no guarding and not rigid Rectal Exam - Male: Yes visual inspection normal and Yes heme negative stool Skin General skin exam: elasticity normal Neuro General: patient oriented x3 Cranial nerves: Yes Equal, round and reactive pupils present and Yes Bilaterally intact EOM present Cognition (Neuro): normal cognition Extrem Other: Moving all extremities well without any obvious deformities Medications Administered Discontinued Medications Generic Name Dose Route Start Last Admin Trade Name Carmen PRN Reason Stop Dose Admin Iohexol 100 ml 10/03/24 11:19 10/03/24 11:22 Iohexol 350 Mg/Ml 100 Ml Infus..Btl IV 10/03/24 11:20 85 ml ONCE ONE Administration Pantoprazole Sodium 40 mg 10/03/24 10:53 10/03/24 11:35 Pantoprazole Sodium 40 Mg/10 Ml Vial IVPUSH 10/03/24 10:54 40 mg ONCE ONE Administration Medical Decision Making Medical Decision Making [facility] Narrative: 43-year-old male presents for evaluation of abdominal pain. He denies associated symptoms including nausea vomiting, diarrhea or urinary complaints. On exam his abdominal pain is not reproducible, he has no tenderness, rebound or guarding. His pain seems mostly located in the right mid abdomen. Concern for cholelithiasis, acute cholecystitis, pancreatitis given the location and alcohol use. Also some concern for constipation, acute appendicitis. Plan for labs, urinalysis. The patient is well-appearing Differential Diagnosis Differential Diagnoses: The differential diagnosis associated with the presentation includes As above Consult Healthcare Provider Management of the patient was discussed with: Member Certification Manager (Dr Tavarez, GI who recommends increasing the patient's omeprazole, repeat labs next week and he can be discharged) Lab Data [facility] Lab Attestation statement: I reviewed the patient's lab results. The patient is anemic with a hemoglobin 11.8 and hematocrit 35.3. This represents a 3.6 point drop in hemoglobin from 6 weeks ago. Given the abdominal pain, this is likely due to a bleeding stomach ulcer or duodenal ulcer. Patient's platelet count is low at 121 1000. His MCV is elevated to 100.3 likely due to his alcohol use. Chemistries are significant for a mild elevation of AST and alk phos likely due to alcohol abuse. Otherwise reassuring labs. I did repeat a hemoglobin hematocrit showing increasing hemoglobin to 12.6. 10/03/24 12:14 10/03/24 09:29 Labs: Lab Results 10/03/24 10/03/24 10/03/24 Range/Units 09:29 09:45 10:35 WBC 7.2 (4.8-10.8) X10*3/uL RBC 3.52 L (4.60-5.80) X10*6/uL Hgb 11.8 L D (14.0-18.0) g/dl Hct 35.3 L (42.0-52.0) % MCV 100.3 H (80.0-98.0) fL MCH 33.5 H (27.0-33.0) pg MCHC 33.4 (31.0-36.0) g/dl RDW 11.9 (11.0-16.0) % Plt Count 121 L D (160-400) X10*3/uL MPV 9.5 (9.4-12.4) fL Immature Gran % (Auto) 0.4 (0.0-0.4) % Neut % (Auto) 68.1 (45-73) % Lymph % (Auto) 20.6 (20-40) % [place] % (Auto) 7.4 (2-11) % Eos % (Auto) 3.1 (0-4) % Baso % (Auto) 0.4 (0-2) % Lymph # (Auto) 1.5 (1.2-4.9) X10*3/uL [place] # (Auto) 0.5 (0.1-1.2) X10*3/uL Eos # (Auto) 0.2 (0.0-0.4) X10*3/uL Baso # (Auto) 0.0 (0.0-0.2) X10*3/uL Abs Immat Gran (auto) 0.03 (0.00-0.03) X10*3/uL Absolute Neuts (auto) 4.9 (2.0-8.3) x10*3/uL Absolute Nucleated RBC 0.000 (0.0-0.012) X10*3/uL Nucleated RBC % (auto) 0.0 (0.0-0.2) /100WBC Sodium 139 (135-145) mmol/L Potassium 4.0 (3.3-5.1) mmol/L Chloride 107 (96-108) mmol/L Carbon Dioxide 25 (22-29) mmol/L Anion Gap 11 L (12-20) BUN 14 (9-16) mg/dL Creatinine 0.67 (0.5-1.4) mg/dL Estim Creat Clear Calc 159.0 Estimated GFR > 60 Random Glucose 102 (60-115) mg/dL Calcium 8.7 D (8.4-10.2) mg/dL Total Bilirubin 1.0 (0.0-1.0) mg/dL Direct Bilirubin 0.3 (0.0-0.5) mg/dL AST 50 H (5-37) U/L ALT 25 (0-40) U/L Alkaline Phosphatase 153 H (39-117) U/L Troponin I High Sens < 2.7 (<3.5-35.0) ng/L Total Protein 7.0 (6.5-8.0) g/dL Albumin 4.2 (3.5-5.0) g/dL Lipase 54 (8-78) U/L Urine Color Dark Yellow Urine Appearance Turbid Urine pH 6.0 (5.0-9.0) Ur Specific [place] >= 1.030 H (1.005-1.025) Urine Protein 30 (1+) H (Neg-Trace) mg/dL Urine Glucose (UA) Negative (Negative) mg/dL Urine Ketones Trace (Negative) mg/dL Urine Blood Negative (Negative) Urine Nitrite Negative (Negative) Ur Leukocyte Esterase Trace H (Negative) Urine RBC 0-2 (0-2) /HPF Urine WBC 0-5 (0-5) /HPF Ur Squamous Epith Cells 0-2 (0-2) /HPF Urine Bacteria None Seen (None Seen) Hyaline Casts 0-2 (0-2) /LPF Stool Occult Blood (NEGATIVE) Ethyl Alcohol < 10 mg/dL Blood Type O Positive Antibody Screen NEGATIVE 10/03/24 10/03/24 Range/Units 10:36 12:14 WBC (4.8-10.8) X10*3/uL RBC (4.60-5.80) X10*6/uL Hgb 12.6 L (14.0-18.0) g/dl Hct 33.2 L (42.0-52.0) % MCV (80.0-98.0) fL MCH (27.0-33.0) pg MCHC (31.0-36.0) g/dl RDW (11.0-16.0) % Plt Count (160-400) X10*3/uL MPV (9.4-12.4) fL Immature Gran % (Auto) (0.0-0.4) % Neut % (Auto) (45-73) % Lymph % (Auto) (20-40) % [place] % (Auto) (2-11) % Eos % (Auto) (0-4) % Baso % (Auto) (0-2) % Lymph # (Auto) (1.2-4.9) X10*3/uL [place] # (Auto) (0.1-1.2) X10*3/uL Eos # (Auto) (0.0-0.4) X10*3/uL Baso # (Auto) (0.0-0.2) X10*3/uL Abs Immat Gran (auto) (0.00-0.03) X10*3/uL Absolute Neuts (auto) (2.0-8.3) x10*3/uL Absolute Nucleated RBC (0.0-0.012) X10*3/uL Nucleated RBC % (auto) (0.0-0.2) /100WBC Sodium (135-145) mmol/L Potassium (3.3-5.1) mmol/L Chloride (96-108) mmol/L Carbon Dioxide (22-29) mmol/L Anion Gap (12-20) BUN (9-16) mg/dL Creatinine (0.5-1.4) mg/dL Estim Creat Clear Calc Estimated GFR Random Glucose (60-115) mg/dL Calcium (8.4-10.2) mg/dL Total Bilirubin (0.0-1.0) mg/dL Direct Bilirubin (0.0-0.5) mg/dL AST (5-37) U/L ALT (0-40) U/L Alkaline Phosphatase (39-117) U/L Troponin I High Sens (<3.5-35.0) ng/L Total Protein (6.5-8.0) g/dL Albumin (3.5-5.0) g/dL Lipase (8-78) U/L Urine Color Urine Appearance Urine pH (5.0-9.0) Ur Specific [place] (1.005-1.025) Urine Protein (Neg-Trace) mg/dL Urine Glucose (UA) (Negative) mg/dL Urine Ketones (Negative) mg/dL Urine Blood (Negative) Urine Nitrite (Negative) Ur Leukocyte Esterase (Negative) Urine RBC (0-2) /HPF Urine WBC (0-5) /HPF Ur Squamous Epith Cells (0-2) /HPF Urine Bacteria (None Seen) Hyaline Casts (0-2) /LPF Stool Occult Blood NEGATIVE (NEGATIVE) Ethyl Alcohol mg/dL Blood Type Antibody Screen Radiology Impression Discussion of test interpretation with radiology: I have reviewed the radiologist's reading. Radiologist Impression: FINDINGS: LUNG BASES: There is air trapping in the anteromedial segment of left lower lobe, adjacent to the left heart margin. LIVER, GALLBLADDER, AND BILIARY TREE: The liver is normal in size, shape, and attenuation. No focal hepatic lesion or biliary ductal dilatation is present. The gallbladder is unremarkable with no evidence of radiopaque gallstones, gallbladder wall thickening, or obvious pericholecystic inflammatory changes. PANCREAS: Unremarkable. SPLEEN: Unremarkable. ADRENAL GLANDS: Unremarkable. KIDNEYS AND URETERS: The kidneys are normal in size, shape, and attenuation. No hydronephrosis, hydroureter, or calculi seen. No perinephric stranding. BLADDER: Unremarkable. GASTROINTESTINAL TRACT: Pseudodiverticula are present in the region of the cecum. Wall the cecum is mildly thickened. However, there are no inflammatory changes in the adjacent mesocolon.. The appendix is mostly gas-filled and thin-walled. ABDOMINAL WALL: No significant hernia is appreciated. LYMPH NODES: Normal. VASCULAR: Minimal atherosclerotic calcifications are evident. PELVIC VISCERA: Unremarkable. OSSEOUS STRUCTURES: Unremarkable. CT/CT abdomen pelvis w IV con IMPRESSION: The cecal wall appears mildly thickened. However, there are no inflammatory changes in the adjacent mesentery. Numerous pseudodiverticula are also present in the cecum. Correlate for signs symptoms of colitis. Other etiologies such as inflammatory bowel disease, neoplasm, and ischemia are unlikely. Fleischner guidelines were followed. Electronically signed by: Romaine Stephenson MD 10/03/2024 11:38 AM EDT Discharge Plan Discharge Clinical Impression: Abdominal pain Patient Disposition: Home, Self-Care Instructions: Peptic Ulcer (ED), Diet for Stomach Ulcers and Gastritis (ED) Additional Instructions: Your blood counts were slightly below normal today. This is most likely due to a bleeding ulcer in or near your stomach I recommend that you discontinue any ibuprofen or other NSAIDs You should decrease alcohol consumption. Take your omeprazole daily in you may increase to twice daily Follow up with GI at the number provided. Return for new or worsening symptoms In his also recommend that you have repeat blood work next week to check your blood counts Prescriptions: No Action losartan 25 mg tablet 25 mg PO DAILY Qty: 90 1RF omeprazole 20 mg capsule,delayed release(DR/EC) 20 mg PO DAILY Qty: 90 1RF Referrals: [facility] [Provider Group, Gastroenterology] Referral Note: anemia, abdominal pain Interventions: ED Discharge Assessment Last Done: 10/03/24 13:22 Print Language: Canadian
[2024-10-03 09:52] LABS: Appearance Urine Turbid; Glucose Urine UA Negative (Negative); PH 6.0 (5.0-9.0); Specific Gravity - Urine >= 1.030 (1.005-1.025); UMIC TRIGGER UACC YES
[2024-10-03 09:56] LABS: Alanine Aminotransferase 25 U/L (0-40); Albumin Level 4.2 g/dL (3.5-5.0); Alkaline Phosphatase 153 U/L (39-117); Anion Gap 11 (12-20); Aspartate Amino Transferase 50 U/L (5-37); Blood Urea Nitrogen 14 mg/dL (9-16); Calcium 8.7 mg/dL (8.4-10.2); Carbon Dioxide 25 mmol/L (22-29); Chloride 107 mmol/L (96-108); Creatinine Clr Calc Pharmacy 159.0; Estimated Glomerular Filt Rate > 60; Lipase 54 U/L (8-78); Potassium 4.0 mmol/L (3.3-5.1); Sodium 139 mmol/L (135-145); Total Protein 7.0 g/dL (6.5-8.0)
[2024-10-03 10:00] LABS: Hematocrit 35.3 % (42.0-52.0); Imm Gran Abs Auto 0.03 X10*3/uL (0.00-0.03); Imm Gran Pct Auto 0.4 % (0.0-0.4); Lymphocytes Absolute Auto 1.5 X10*3/uL (1.2-4.9); Mean Corpuscular Volume 100.3 fL (80.0-98.0); NRBC Abs Auto 0.000 X10*3/uL (0.0-0.012); NRBC Pct Auto 0.0 /100WBC (0.0-0.2); Platelet Count 121 X10*3/uL (160-400); Red Blood Count 3.52 X10*6/uL (4.60-5.80); White Blood Count 7.2 X10*3/uL (4.8-10.8)
[2024-10-03 10:03] VITALS: BP 134/96; PULSE 95; RESP 17; TEMP 36.7; O2SAT 98
[2024-10-03 10:05] LABS: Hemoglobin 11.8 g/dl (14.0-18.0)
[2024-10-03 10:06] LABS: Mean Corpuscular HGB Conc 33.4 g/dl (31.0-36.0); Mean Corpuscular Hemoglobin 33.5 pg (27.0-33.0)
[2024-10-03 10:16] LABS: Troponin-I High Sensitivity < 2.7 ng/L (<3.5-35.0)
[2024-10-03 10:17] VITALS: BP 134/96; PULSE 79; RESP 17; TEMP 36.8; O2SAT 97
--- NOTE | 2024-10-03 10:29 | PC.NURSE ---
43 M presents to ED with R abdominal pain x 7 days, denies n/v/c/d. RR even and unlabored, denies SOB or CP. Pt is a chronic alcohol drinker, sts 3 whiskey drinks/day during week, more on weekend. Denies any other complaint. Calm, cooperative.
[2024-10-03 10:42] LABS: OBS Int Ctl Valid YES; OBS1 NEGATIVE (NEGATIVE)
[2024-10-03] MEDS: iohexoL 350 MG/ML 100 ML INFUS..BTL IV (11:22)
[2024-10-03 11:54] VITALS: BP 128/85; PULSE 78; RESP 16; TEMP 36.7; O2SAT 98
[2024-10-03 12:19] LABS: Hematocrit 33.2 % (42.0-52.0); Hemoglobin 12.6 g/dl (14.0-18.0)
[2024-10-03 13:22] VITALS: BP 128/85; PULSE 78; RESP 16; TEMP 36.7; O2SAT 98
== END 2024-10-03 13:23 | disposition home or self-care (01) ==
PROVIDERS: Physician Assistant; Emergency Provider Emergency Medicine
DX: R10.9 Unspecified abdominal pain (principal); K21.9 Gastro-esophageal reflux disease without esophagitis; I10 Essential (primary) hypertension
CPT/HCPCS: 36415; 74177; 80048; 80076; 80307; 81001; 82272; 83690; 84484; 85014; 85018; 85025; 86850; 86900; 86901; 93005; 96374; 99284; 99285; J2470; Q9967

== ENCOUNTER → 2024-10-03 09:14 | Outpatient (BNV) | payer OTHER, SELFPAY | PROVIDERS: Emergency Provider Emergency Medicine; Visit Provider Internal Medicine Cardiovascular Disease | DX: R94.31 Abnormal electrocardiogram [ECG] [EKG] (principal); R10.9 Unspecified abdominal pain | CPT/HCPCS: 93010 ==

== ENCOUNTER → 2024-10-03 11:09 | Outpatient (BNV) | payer OTHER, SELFPAY | PROVIDERS: Emergency Provider Emergency Medicine; Visit Provider Radiology Diagnostic Radiology | DX: K57.30 Diverticulosis of large intestine without perforation or abscess without bleeding (principal) | CPT/HCPCS: 74177 ==

== ENCOUNTER 2024-10-11 16:34 | Outpatient (AMB) | payer OTHER, SELFPAY ==
[2024-10-11 16:50] VITALS: BP 152/92; PULSE 87; O2SAT 98; BMI 27.2
--- NOTE | 2024-10-11 16:50 | MHC.PC.OV ---
Vital Signs 10/11/24 16:50 Height 6 ft 1 in Weight 206 lb BMI 27.2 BP 152/92 H Blood Pressure Location Lt brachial Position Sitting Pulse 87 Pulse Source Pulse Oximeter Pulse Oximetry (%) 98 Oxygen Delivery Method Room Air Intake Visit Reasons: [facility] 10/03 rt side pain Allergies amoxicillin (From Augmentin) Allergy (Verified 10/11/24 16:51) Unknown clavulanic acid (From Augmentin) Allergy (Verified 10/11/24 16:51) Unknown Tobacco use date assessed: 09/17/24 Dental Screening Dental Screen Date: 07/11/24 HPI HPI Comments History of Present Illness Details 43 y/o Male patient who presents to the clinic today for EDF. Pt was admitted at [facility] on 10/03 for an evaluation and treatment of Gastritis/Peptic ulcer. Pt was away on vacation where he was drinking 2-3 glasses of whisky everyday. Today reports good improvement and has not had a drink since hospital discharged. He is waiting for GI to schedule an appointment. [facility] Medical History (Updated 10/11/24 @ 17:18 by Joseline Grissom NP) Gastritis Right calcaneal fracture Fracture of calcaneus with routine healing No active medical problems Family History (Updated 10/11/24 @ 16:51 by Sona Moreno CMA) Maternal Grandfather Cancer Maternal Grandmother Liver cancer Paternal Grandfather Cancer of spine Social History Housing: House Alcohol intake: current Alcohol intake frequency: 3 or more drinks per day Alcohol type: hard liquor Patient Tobacco Use Status: Current everyday Tobacco user Tobacco use type: Cigarette Cigarette Packs Per Day: 1 Cigarettes Per Day: 20 Years Smoked: 26 e-Cigarette/Vaping Use: Never Used service: No Current occupational status: employed 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 1. Little interest or pleasure in doing things: not at all 2. Feeling down, depressed, or hopeless: not at all 3. Trouble falling or staying asleep, or sleeping too much: not at all 4. Feeling tired or having little energy: not at all 5. Poor appetite or overeating: not at all 6. Feeling bad about yourself - or that you are a failure or have let yourself or your family down: not at all 7. Trouble concentrating on things, such as reading the newspaper or watching television: not at all 8. Moving or speaking so slowly that other people could have noticed. Or the opposite - being so fidgety or restless that you have been moving around a lot more than usual: not at all 9. Thoughts that you would be better off or of hurting yourself in some way: not at all Total score: 0 Depression Screening Interpretation: Negative Depression Screening Done: Yes Source: Developed by Drs. Yaw Dupree, Nasrin Anderson, Jagdeep Magdaleno and colleagues, with an educational nasra from [employer]. Thrive Questionnaire Date Thrive assessed: 08/21/24 AUDIT C Alcohol Use Questionnaire (AUDIT-C) 1. How often do you have a drink containing alcohol?: Never 3. How often do you have six or more drinks on one occasion?: Never Total Score: 0 SOURAV-7 AMB Questionnaire SOURAV-7 Date SOURAV - 7 assessed: 08/21/24 Source: Developed by Drs. Yaw Dupree, Nasrin Anderson, Jagdeep Magdaleno and colleagues, with an educational nasra from [employer]. Review of Systems Const All systems reviewed & are unremarkable except as noted in HPI and below Physical exam (Primary Care) Vital Signs: Last Vital Signs Pulse 87 10/11/24 16:50 BP 152/92 H 10/11/24 16:50 Pulse Ox 98 10/11/24 16:50 Oxygen Delivery Method Room Air 10/11/24 16:50 BMI result Body Mass Index 27.2 Tobacco/Smoking Status: Tobacco use Status Tobacco use date assessed 09/17/24 10/11/24 16:55 Patient Tobacco Use Status Current everyday Tobacco 10/11/24 16:55 Tobacco use type Cigarette 10/11/24 16:55 e-Cigarette/Vaping Use Never Used 10/11/24 16:55 PHQ-9: PHQ-9 Score PHQ-9: Total score 0 10/11/24 16:55 Depression Screening Interpretation: Negative Thrive Assessment: Date of Thrive Assessment Date Thrive assessed 08/21/24 10/11/24 16:55 Const General: no acute distress Nutritional Appearance: overweight Orientation/consciousness: patient oriented x3 Resp Effort & Inspection: normal respiratory effort and able to speak in complete sentences Auscultation: clear to auscultation bilaterally Cardio Heart sounds: S1 normal heart sound present and S2 normal heart sound present GI Inspection: Yes obesity Palpation (GI): Soft to palpation, not firm, Tenderness to palpation present (GI) in the RLQ and in the RUQ, no guarding, not rigid and No hepatosplenomegaly present Auscultation: normal bowel sounds Rectal Exam - Male: Yes deferred Neuro General: patient oriented x3, gait normal and moves all extremities Coding Level of Care Code Est Pt Level 4 (70101) Diagnoses Other acute gastritis without hemorrhage K29.00 Gastritis type: other gastritis Chronicity: acute Gastritis bleeding: without bleeding Time Spent (min) 20 Assessment & Plan Assessment & Plan (1) Gastritis: Code(s): K29.70 - Gastritis, unspecified, without bleeding Category: Medical Qualifiers: Gastritis type: other gastritis Chronicity: acute Gastritis bleeding: without bleeding Qualified Code(s): K29.00 - Acute gastritis without bleeding Plan: Stop drinking alcohol Double on the Omeprazole in the next few days Avoid Spicy, oily foods.
== END 2024-10-11 17:09 | disposition home or self-care (01) ==
LOC: HO.HMCH 16:34
PROVIDERS: Visit Provider Nurse Practitioner Family
DX: K29.00 Acute gastritis without bleeding (principal)

== ENCOUNTER 2024-10-14 07:48 | Outpatient (REF) | payer OTHER, SELFPAY ==
--- NOTE | ~2024-10-14 | US_ITS ---
EXAMINATION: US ABDOMEN LIMITED HISTORY: R79.89 - Other specified abnormal findings of blood chemistry TECHNIQUE: Real-time grayscale ultrasound imaging of the right upper quadrant was performed and images were reviewed. COMPARISON: Correlation is made with a CT of the abdomen with contrast dated 10/03/2024. FINDINGS: Liver: The right lobe of the liver measures 22.5 cm in size. The left lobe of the liver measures 13.1 cm in size. The liver demonstrates increased echotexture, consistent with steatosis. No focal mass or intrahepatic biliary ductal dilatation is identified. There is normal hepatopedal flow in the portal vein. Gallbladder and biliary tree: The gallbladder is unremarkable, without evidence of calculi, wall thickening, or pericholecystic fluid. There is no sonographic Gross sign. The common bile duct is normal in caliber measuring 3 mm. Right Kidney: The right kidney measures 11.7 cm in length. The right kidney is unremarkable, without evidence of masses, hydronephrosis, or calculi. Pancreas: The pancreatic head, neck, and body are unremarkable. The pancreatic tail is obscured by bowel gas. Abdominal aorta and inferior vena cava: The visualized portions of the abdominal aorta and inferior vena cava are normal in caliber. There is no free fluid in the right upper quadrant. US/US abdomen limited IMPRESSION: Hepatomegaly and hepatic steatosis. Electronically signed by: Yaw Alanis MD 10/14/2024 08:35 AM EDT
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
== END 2024-10-14 07:49 | disposition home or self-care (01) ==
LOC: HO.US 07:48
DX: R79.89 Other specified abnormal findings of blood chemistry (principal)
CPT/HCPCS: 76705

== ENCOUNTER → 2024-10-14 07:50 | Outpatient (BNV) | payer OTHER, SELFPAY | PROVIDERS: Visit Provider Radiology Diagnostic Radiology | DX: K76.0 Fatty (change of) liver, not elsewhere classified (principal); R16.0 Hepatomegaly, not elsewhere classified | CPT/HCPCS: 76705 ==

== ENCOUNTER 2025-03-11 19:04 | Emergency (ER) | payer OTHER, SELFPAY ==
[2025-03-11 19:23] VITALS: BP 146/104; PULSE 99; RESP 18; TEMP 36.6; O2SAT 97; BMI 26.4
--- NOTE | 2025-03-11 19:23 | ED.ABDPAIN ---
HPI - Abdominal Pain General Chief Complaint: Nausea/Vomiting/Diarrhea Stated Complaint: abd pain/vomiting Related Data Home Medications ?Medication ?Instructions ?Recorded ?Confirmed doxycycline hyclate 100 mg tablet 100 mg PO BID 03/20/25 03/20/25 folic acid 1 mg tablet 1 mg PO DAILY 03/20/25 03/20/25 furosemide 40 mg tablet 40 mg PO BID 03/20/25 03/20/25 hydromorphone 4 mg tablet 2 mg PO 03/20/25 03/20/25 nicotine (polacrilex) 2 mg gum mg PO 03/20/25 03/20/25 pantoprazole 40 mg tablet,delayed 40 mg PO DAILY 03/20/25 03/20/25 release Previous Rx's ?Medication ?Instructions ?Recorded losartan 25 mg tablet 25 mg PO DAILY #90 tabs 09/12/24 omeprazole 20 mg capsule,delayed 20 mg PO DAILY #90 caps 02/18/25 release Allergies Allergy/AdvReac Type Severity Reaction Status Date / Time amoxicillin (From Augmentin) Allergy Unknown Verified 03/20/25 09:57 clavulanic acid (From Allergy Unknown Verified 03/20/25 09:57 Augmentin) [facility] Past Medical History Medical History Acute alcoholic pancreatitis Gastritis Right calcaneal fracture Fracture of calcaneus with routine healing No active medical problems Family History Family History Maternal Grandfather Cancer Maternal Grandmother Liver cancer Paternal Grandfather Cancer of spine Social History Social History Housing: House Alcohol intake: current Alcohol intake frequency: 3 or more drinks per day Alcohol type: hard liquor Patient Tobacco Use Status: Current everyday Tobacco user Tobacco use type: Cigarette Cigarette Packs Per Day: 1 Cigarettes Per Day: 20 Years Smoked: 26 Packs Per Year: 0 Packs per year/per ci.00 e-Cigarette/Vaping Use: Never Used service: No Current occupational status: employed 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 Full HPI, ROS and PE to be performed by primary ED provider. 44 yo M w/PMHx gastritis, HTN, GERD presenting to the ED c/o diffuse abdominal pain x yesterday w/assoc N/V, diarrhea, fever, chills. +decreased PO intake PE: abdomen soft w/epigatric ttp Plan: Labs, UA, SARs Discharge Plan Discharge Clinical Impression: Nausea vomiting and diarrhea Patient Disposition: Left W/O Completing Treatment Prescriptions: No Action losartan 25 mg tablet 25 mg PO DAILY Qty: 90 1RF omeprazole 20 mg capsule,delayed release(DR/EC) 20 mg PO DAILY Qty: 90 1RF furosemide 40 mg tablet 40 mg PO BID nicotine (polacrilex) 2 mg gum PO pantoprazole 40 mg tablet,delayed release (DR/EC) 40 mg PO DAILY folic acid 1 mg tablet 1 mg PO DAILY hydromorphone 4 mg tablet 2 mg PO doxycycline hyclate 100 mg tablet 100 mg PO BID Discharge Date/Time: 03/12/25 01:31
== END 2025-03-12 01:31 | disposition left against medical advice (07) ==
PROVIDERS: Emergency Provider Emergency Medicine
DX: R11.2 Nausea with vomiting, unspecified (principal); R19.7 Diarrhea, unspecified; Z53.29 Procedure and treatment not carried out because of patient's decision for other reasons
CPT/HCPCS: 99281